=== PATIENT | female | born 2000 | race African-American/Black ===

== ENCOUNTER 2020-02-06 08:16 | Emergency (ER) | payer SELFPAY ==
[2020-02-06] MEDS ORDERED: FLU VACC QS2020-21(6MOS UP)/PF 60 MCG/0.5 ML SYRINGE IM ONE (08:45)
--- NOTE | 2020-02-06 08:48 | EDM.PDOC ---
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 Patient states approximately 3 to 4 weeks ago she had a positive home test. This morning she noticed some vaginal bleeding initially started out pretty light. She is noted a couple of tiny clots and now it is acting like it normal period. Patient denies prior pregnancies. Patient has no other complaints at this point. Patient is has used a couple of tampons this morning with mild bleeding and spotting of these. She has passed 2 very small clots. Patient denies any fevers or chills or significant abdominal pain. No nausea vomiting constipation or diarrhea no burning or frequency with urination. Lower Vaginal Pain Score (Numeric/FACES): 6 - Related Data Allergies Allergy/AdvReac Type Severity Reaction Status Date / Time No Known Allergies Allergy Verified 02/06/20 08:45 Home Meds: Home Meds . [No Known Home Meds] 02/06/20 [History] Past Medical History HEENT History: Reports: Impaired Vision Other HEENT History: wears eyeglasses. Cardiovascular History: Reports: Hypertension Other Cardiovascular History: wasa taking med, did not refill. 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 - Infectious Disease History Infectious Disease History: Reports: Chicken Pox Social & Family History - Tobacco Use Tobacco Use Status *Q: Never Tobacco User Second Hand Smoke Exposure: No - Caffeine Use Caffeine Use: Reports: None - Recreational Drug Use Recreational Drug Use: No ED ROS GENERAL - Review of Systems Review Of Systems: See Below Constitutional: Reports: No Symptoms HEENT: Reports: No Symptoms Respiratory: Reports: No Symptoms Cardiovascular: Reports: No Symptoms GI/Abdominal: Denies: Abdominal Pain, Constipation, Diarrhea, Nausea, Vomiting : Denies: Flank Pain, Frequency, Urgency Musculoskeletal: Reports: No Symptoms Skin: Reports: No Symptoms Neurological: Reports: No Symptoms ED EXAM - Physical Exam Exam: See Below Exam Limited By: No Limitations General Appearance: Alert, No Apparent Distress, Obese Throat/Mouth: Normal Inspection, Normal Lips, Normal Teeth, Normal Gums, Normal Oropharynx, Normal Voice, No Airway Compromise Head: Atraumatic, Normocephalic Neck: Normal Inspection Respiratory/Chest: No Respiratory Distress, Lungs Clear, Normal Breath Sounds Cardiovascular: Regular Rate, Rhythm, No Edema, No Murmur GI/Abdominal Exam: Normal Bowel Sounds, Soft, Tender (Patient is some vague left lower quadrant discomfort that is fairly mild and only noticed with palpation. Patient was not complaining of abdominal pain on presentation.) (Female) Exam: Normal Bimanual Exam, Normal External Exam, Normal Speculum Exam, Other (All amount of bloody discharge was few dark clots noted that are very small. She has some membranous material coming from the cervical os.) Back Exam: Normal Inspection. No: CVA Tenderness (L), CVA Tenderness (R) Extremities: Normal Inspection, No Pedal Edema Neurological: Alert, Oriented, Normal Cognition Skin Exam: Other (Patient states he has had hidradenitis causing the mild scarring in her lower extremities no active lesions at this time) Course - Vital Signs Last Recorded V/S: Last Vital Signs Temp 37.6 C 02/06/20 14:05 Pulse 74 02/06/20 14:05 Resp 16 02/06/20 14:05 BP 145/95 H 02/06/20 14:05 Pulse Ox 100 02/06/20 14:05 - Orders/Labs/Meds Orders: Active Orders 24 hr Category Date Time Status PATIENT RETYPE [BBK] Routine Lab 02/06/20 10:06 Ordered Labs: Laboratory Tests 02/06/20 02/06/20 02/06/20 Range/Units 09:10 09:10 09:10 WBC 3.22 L (3.98-10.04) K/mm3 RBC 4.64 (3.98-5.22) M/mm3 Hgb 11.6 (11.2-15.7) gm/dl Hct 36.6 (34.1-44.9) % MCV 78.9 L (79.4-94.8) fl MCH 25.0 L (25.6-32.2) pg MCHC 31.7 L (32.2-35.5) g/dl RDW Std Deviation 39.1 (36.4-46.3) fL Plt Count 235 (182-369) K/mm3 MPV 10.9 (9.4-12.3) fl Neut % (Auto) 54.3 (34.0-71.1) % Lymph % (Auto) 33.9 (19.3-51.7) % Peach % (Auto) 9.6 (4.7-12.5) % Eos % (Auto) 1.6 (0.7-5.8) Baso % (Auto) 0.6 (0.1-1.2) % Neut # (Auto) 1.75 (1.56-6.13) K/mm3 Lymph # (Auto) 1.09 L (1.18-3.74) K/mm3 Peach # (Auto) 0.31 (0.24-0.36) K/mm3 Eos # (Auto) 0.05 (0.04-0.36) K/mm3 Baso # (Auto) 0.02 (0.01-0.08) K/mm3 HCG, Quant 2.0 mIU/mL Urine Color (Yellow) Urine Appearance (Clear) Urine pH (5.0-8.0) Ur Specific Everett (1.005-1.030) Urine Protein (Negative) Urine Glucose (UA) (Negative) Urine Ketones (Negative) Urine Occult Blood (Negative) Urine Nitrite (Negative) Urine Bilirubin (Negative) Urine Urobilinogen (0.2-1.0) Ur Leukocyte Esterase (Negative) Urine RBC (0-5) /hpf Urine WBC (0-5) /hpf Ur Squamous Epith Cells (0-5) /hpf Urine Bacteria (FEW) /hpf Urine Mucus (FEW) /hpf Blood Type B POSITIVE Gel Antibody Screen Negative 02/06/20 Range/Units 12:28 WBC (3.98-10.04) K/mm3 RBC (3.98-5.22) M/mm3 Hgb (11.2-15.7) gm/dl Hct (34.1-44.9) % MCV (79.4-94.8) fl MCH (25.6-32.2) pg MCHC (32.2-35.5) g/dl RDW Std Deviation (36.4-46.3) fL Plt Count (182-369) K/mm3 MPV (9.4-12.3) fl Neut % (Auto) (34.0-71.1) % Lymph % (Auto) (19.3-51.7) % Peach % (Auto) (4.7-12.5) % Eos % (Auto) (0.7-5.8) Baso % (Auto) (0.1-1.2) % Neut # (Auto) (1.56-6.13) K/mm3 Lymph # (Auto) (1.18-3.74) K/mm3 Peach # (Auto) (0.24-0.36) K/mm3 Eos # (Auto) (0.04-0.36) K/mm3 Baso # (Auto) (0.01-0.08) K/mm3 HCG, Quant mIU/mL Urine Color Yellow (Yellow) Urine Appearance Clear (Clear) Urine pH 6.0 (5.0-8.0) Ur Specific Everett 1.025 (1.005-1.030) Urine Protein Negative (Negative) Urine Glucose (UA) Negative (Negative) Urine Ketones Negative (Negative) Urine Occult Blood 3+ H (Negative) Urine Nitrite Negative (Negative) Urine Bilirubin Negative (Negative) Urine Urobilinogen 0.2 (0.2-1.0) Ur Leukocyte Esterase Negative (Negative) Urine RBC >100 H (0-5) /hpf Urine WBC 0-5 (0-5) /hpf Ur Squamous Epith Cells 5-10 H (0-5) /hpf Urine Bacteria Few (FEW) /hpf Urine Mucus Rare (FEW) /hpf Blood Type Gel Antibody Screen Meds: Medications Discontinued Medications Generic Name Dose Route Start Last Admin Trade Name Joseq PRN Reason Stop Dose Admin Influenza Virus Vaccine 60 mcg 02/06/20 08:45 02/06/20 09:50 Fluzone Quad [id number] Syringe IM 02/06/20 08:46 60 mcg .ONCE ONE Administration - Re-Assessments/Exams Free Text/Narrative Re-Assessment/Exam: 02/06/20 12:28 Urinalysis pending CBC looks assuring quantitative hCG is 2.0. Vaginal exam as stated above. I suspect she has had a miscarriage. I discussed patient's case with Dr. Bee who does not think there is any utility in checking an ultrasound at this point I tend to agree. The patient will follow [facility] on . 02/06/20 13:55 She has microscopic hematuria most likely from the vaginal bleeding. Leukocyte esterase and nitrates negative not suggestive of UTI Departure - Departure Time of Disposition: 13:55 Disposition: Home, Self-Care 01 Clinical Impression: Incomplete , Incomplete miscarriage - Discharge Information Instructions: Miscarriage, [id number] Referrals: Allie Hummel NP [Primary Care Provider] - Babak Bee MD [Physician] - Forms: ED Department Discharge, ED Return to Work/School Form Additional Instructions: Return to the emergency room with any questions problems or heavy bleeding. Heavy bleeding is going through to fully saturated pads over 2 hours or over 2 and a 30-minute.. Follow-up at the women's clinic with Dr. Robbins on Wednesday at 10:30 in the morning. Start vitamins with folic acid take 1 daily. Do not try and get until told it is safe to do so. Sepsis Event Note (ED) - Evaluation Sepsis Screening Result: No Definite Risk - Focused Exam Vital Signs: Vital Signs Temp Pulse Resp BP Pulse Ox 02/06/20 14:05 37.6 C 74 16 145/95 H 100 02/06/20 08:20 36.1 C 82 16 157/81 H 100 - My Orders Last 24 Hours: My Active Orders 02/06/20 10:06 PATIENT RETYPE [BBK] Routine - Assessment/Plan Last 24 Hours: My Active Orders 02/06/20 10:06 PATIENT RETYPE [BBK] Routine
== END 2020-02-06 14:10 | disposition home or self-care (01) ==
LOC: JD.ED 08:16
DX: O03.4 Incomplete spontaneous abortion without complication (principal); I10 Essential (primary) hypertension; E66.9 Obesity, unspecified; Z68.43 Body mass index [BMI] 50.0-59.9, adult; Z23 Encounter for immunization
CPT/HCPCS: 36415; 81001; 84702; 85025; 86850; 86900; 86901; 90686; 99282; 99284-25; G0008

== ENCOUNTER 2020-02-20 21:52 | Emergency (ER) | payer SELFPAY ==
[2020-02-20] MEDS ORDERED: Sodium Chloride 0.9% 10 ML Syringe FLUSH PRN (22:18)
[2020-02-20] MEDS ORDERED: Ketorolac 30 MG/ML SDV IVPUSH ONE (22:19)
[2020-02-20] MEDS ORDERED: Ondansetron 4 MG/2 ML SDV IVPUSH ONE (22:19)
[2020-02-20] MEDS ORDERED: Sodium Chloride 0.9% 1,000 ML IV SCH (22:30)
--- NOTE | 2020-02-20 22:36 | EDM.PDOC ---
ED HPI GENERAL MEDICAL PROBLEM - General Chief Complaint: General Stated Complaint: SOB, DIZZY, HEART PALPATIONS, MIGRAINE Time Seen by Provider: 02/20/20 21:57 Source of Information: Reports: Patient History Limitations: Reports: No Limitations - History of Present Illness INITIAL COMMENTS - FREE TEXT/NARRATIVE: The patient presents with palpitations, dizziness and headache. This has been going on for about a week. A couple weeks ago she miscarried. She has no more bleeding from that. She says her heart has been racing at times. She also has been getting lightheaded. She has a headache on the right side of her head most of the time the past week She has no numbness but she has generalized weakness. She has no fever, chills, cough, chest pain, shortness of breath, abdominal pain, nausea or vomiting. She has a history of hypertension but no history of heart disease, diabetes or hypercholesterolemia. She does not smoke. Onset: Gradual Duration: Week(s): Location: Reports: Head Quality: Reports: Ache Severity: Moderate Improves with: Reports: None Worsens with: Reports: None Associated Symptoms: Reports: Headaches. Denies: Chest Pain, Cough, Fever/Chills, Nausea/Vomiting, Shortness of Breath Right Head Pain Score (Numeric/FACES): 5 Right Posterior Neck Pain Score (Numeric/FACES): 4 - Related Data Allergies Allergy/AdvReac Type Severity Reaction Status Date / Time doxycycline Allergy Severe Rash Verified 02/20/20 22:11 Home Meds: Home Meds . [No Known Home Meds] 02/06/20 [History] Past Medical History HEENT History: Reports: Impaired Vision Other HEENT History: wears eyeglasses. Cardiovascular History: Reports: Hypertension Other Cardiovascular History: wasa taking med, did not refill. 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 - Infectious Disease History Infectious Disease History: Reports: Chicken Pox Social & Family History - Tobacco Use Tobacco Use Status *Q: Never Tobacco User - Caffeine Use Caffeine Use: Reports: None - Recreational Drug Use Recreational Drug Use: No ED ROS GENERAL - Review of Systems Review Of Systems: See Below Constitutional: Reports: Weakness. Denies: Fever, Chills HEENT: Reports: No Symptoms Respiratory: Reports: No Symptoms Cardiovascular: Reports: Lightheadedness. Denies: Chest Pain Endocrine: Reports: No Symptoms GI/Abdominal: Reports: No Symptoms : Reports: No Symptoms Musculoskeletal: Reports: No Symptoms Neurological: Reports: Headache ED EXAM, GENERAL - Physical Exam Exam: See Below Exam Limited By: No Limitations General Appearance: Alert, No Apparent Distress Ears: Normal External Exam Nose: Normal Inspection Head: Atraumatic, Normocephalic Neck: Normal Inspection Respiratory/Chest: No Respiratory Distress, Lungs Clear, Normal Breath Sounds Cardiovascular: Regular Rate, Rhythm, No Edema, No Murmur GI/Abdominal: Soft, Non-Tender, No Organomegaly, No Mass Back Exam: Normal Inspection Extremities: Normal Inspection #1 Interpretation EKG Date: 02/20/20 Time: 22:24 Rhythm: NSR Rate (Beats/Min): 96 Bath: Normal P-Wave: Present QRS: Normal ST-T: Normal QT: Normal Course - Vital Signs Last Recorded V/S: Last Vital Signs Temp 97.3 F 02/20/20 22:04 Pulse 113 H 02/20/20 22:04 Resp 28 H 02/20/20 22:04 BP 140/70 02/20/20 22:04 Pulse Ox 97 02/20/20 22:04 - Orders/Labs/Meds Orders: Active Orders 24 hr Category Date Time Status Cardiac Monitoring [RC] . DIRECTED Care 02/20/20 22:18 Active EKG Documentation Completion [RC] STAT Care 02/20/20 22:18 Active Peripheral IV Care [RC] . DIRECTED Care 02/20/20 22:18 Active Sodium Chloride 0.9% [Normal Saline] 1,000 ml Med 02/20/20 22:30 Active IV .BOLUS Sodium Chloride 0.9% [Saline Flush] Med 02/20/20 22:18 Active 10 ml FLUSH ASDIRECTED PRN Peripheral IV Insertion Adult [OM.PC] Stat Oth 02/20/20 22:18 Ordered Medication Orders Sodium Chloride (Normal Saline) 1,000 mls @ 1,000 mls/hr IV .BOLUS DIAMOND Last Admin: 02/20/20 22:34 Dose: 1,000 mls/hr Documented by: AZALEA Sodium Chloride (Saline Flush) 10 ml FLUSH ASDIRECTED PRN PRN Reason: Keep Vein Open Last Admin: 02/20/20 22:35 Dose: 10 ml Documented by: AZALEA Labs: Laboratory Tests 02/20/20 02/20/20 02/20/20 Range/Units 22:40 22:40 22:40 WBC 8.85 (3.98-10.04) K/mm3 RBC 4.36 (3.98-5.22) M/mm3 Hgb 10.6 L (11.2-15.7) gm/dl Hct 34.1 (34.1-44.9) % MCV 78.2 L (79.4-94.8) fl MCH 24.3 L (25.6-32.2) pg MCHC 31.1 L (32.2-35.5) g/dl RDW Std Deviation 39.4 (36.4-46.3) fL Plt Count 237 (182-369) K/mm3 MPV 11.1 (9.4-12.3) fl Neut % (Auto) 27.5 L (34.0-71.1) % Lymph % (Auto) 59.9 H (19.3-51.7) % Wheeler % (Auto) 10.3 (4.7-12.5) % Eos % (Auto) 0.2 L (0.7-5.8) Baso % (Auto) 1.9 H (0.1-1.2) % Neut # (Auto) 2.43 (1.56-6.13) K/mm3 Lymph # (Auto) 5.30 H (1.18-3.74) K/mm3 Wheeler # (Auto) 0.91 H (0.24-0.36) K/mm3 Eos # (Auto) 0.02 L (0.04-0.36) K/mm3 Baso # (Auto) 0.17 H (0.01-0.08) K/mm3 Manual Slide Review Abnormal smear Sodium 136 (136-145) mEq/L Potassium 3.1 L (3.5-5.1) mEq/L Chloride 102 (98-107) mEq/L Carbon Dioxide 24 (21-32) mEq/L Anion Gap 13.1 (5-15) BUN 16 (7-18) mg/dL Creatinine 1.1 H (0.55-1.02) mg/dL Est Cr Clr Drug Dosing 67.48 mL/min Estimated GFR (MDRD) > 60 (>60) mL/min BUN/Creatinine Ratio 14.5 (14-18) Glucose 86 (74-106) mg/dL Calcium 9.0 (8.5-10.1) mg/dL Total Bilirubin 0.4 (0.2-1.0) mg/dL AST 138 H (15-37) U/L ALT 188 H (14-59) U/L Alkaline Phosphatase 50 (46-116) U/L Troponin I < 0.017 (0.00-0.056) ng/mL Total Protein 7.9 (6.4-8.2) g/dl Albumin 3.3 L (3.4-5.0) g/dl Globulin 4.6 gm/dL Albumin/Globulin Ratio 0.7 L (1-2) TSH 3rd Generation (0.516-4.13) uIU/mL HCG, Qual Negative (NEGATIVE) 02/20/20 Range/Units 22:40 WBC (3.98-10.04) K/mm3 RBC (3.98-5.22) M/mm3 Hgb (11.2-15.7) gm/dl Hct (34.1-44.9) % MCV (79.4-94.8) fl MCH (25.6-32.2) pg MCHC (32.2-35.5) g/dl RDW Std Deviation (36.4-46.3) fL Plt Count (182-369) K/mm3 MPV (9.4-12.3) fl Neut % (Auto) (34.0-71.1) % Lymph % (Auto) (19.3-51.7) % Wheeler % (Auto) (4.7-12.5) % Eos % (Auto) (0.7-5.8) Baso % (Auto) (0.1-1.2) % Neut # (Auto) (1.56-6.13) K/mm3 Lymph # (Auto) (1.18-3.74) K/mm3 Wheeler # (Auto) (0.24-0.36) K/mm3 Eos # (Auto) (0.04-0.36) K/mm3 Baso # (Auto) (0.01-0.08) K/mm3 Manual Slide Review Sodium (136-145) mEq/L Potassium (3.5-5.1) mEq/L Chloride (98-107) mEq/L Carbon Dioxide (21-32) mEq/L Anion Gap (5-15) BUN (7-18) mg/dL Creatinine (0.55-1.02) mg/dL Est Cr Clr Drug Dosing mL/min Estimated GFR (MDRD) (>60) mL/min BUN/Creatinine Ratio (14-18) Glucose (74-106) mg/dL Calcium (8.5-10.1) mg/dL Total Bilirubin (0.2-1.0) mg/dL AST (15-37) U/L ALT (14-59) U/L Alkaline Phosphatase (46-116) U/L Troponin I (0.00-0.056) ng/mL Total Protein (6.4-8.2) g/dl Albumin (3.4-5.0) g/dl Globulin gm/dL Albumin/Globulin Ratio (1-2) TSH 3rd Generation 3.197 (0.516-4.13) uIU/mL HCG, Qual (NEGATIVE) Meds: Medications Generic Name Dose Route Start Last Admin Trade Name Freq PRN Reason Stop Dose Admin Sodium Chloride 1,000 mls @ 1,000 mls/hr 02/20/20 22:30 02/20/20 22:34 Normal Saline IV 1,000 mls/hr .BOLUS DIAMOND Administration Sodium Chloride 10 ml 02/20/20 22:18 02/20/20 22:35 Saline Flush FLUSH 10 ml ASDIRECTED PRN Administration Keep Vein Open Discontinued Medications Generic Name Dose Route Start Last Admin Trade Name Freq PRN Reason Stop Dose Admin Ketorolac Tromethamine 30 mg 02/20/20 22:19 02/20/20 22:34 Toradol IVPUSH 02/20/20 22:20 30 mg ONETIME ONE Administration Ondansetron HCl 4 mg 02/20/20 22:19 02/20/20 22:34 Zofran IVPUSH 02/20/20 22:20 4 mg ONETIME ONE Administration - Re-Assessments/Exams Free Text/Narrative Re-Assessment/Exam: 12/15/20 22:38 I ordered an IV NS 1L bolus, zofran 4mg IV, toradol 4mg IV, labs, and EKG. Her EKG shows a NSR with no acute changes. 02/20/20 23:46 Her CBC looks good. Her CBC looks good. Her K is low at 3.1. Her creatinine is slightly elevated at 1.1. Her AST is elevated at 138. Her ALT is elevated at 188. Her troponin is negative. Her HCG is negative. Her TSH is normal. 02/20/20 23:47 Her headache is gone now. Departure - Departure Time of Disposition: 23:50 Disposition: Home, Self-Care 01 Condition: Good Clinical Impression: Palpitations, Elevated liver enzymes, Hypokalemia Headache Qualifiers: Headache type: other headache syndrome Qualified Code(s): G44.89 - Other headache syndrome - Discharge Information *PRESCRIPTION DRUG MONITORING PROGRAM REVIEWED*: Not Applicable *COPY OF PRESCRIPTION DRUG MONITORING REPORT IN PATIENT BISI: Not Applicable Referrals: Allie Hummel NP [Primary Care Provider] - 1 Week Forms: ED Department Discharge Additional Instructions: Keep taking a multivitamin that contains potassium. Drink plenty of fluids. Take motrin or tylenol for your headache. See your doctor within a week and have your liver enzymes rechecked. Sepsis Event Note (ED) - Evaluation Sepsis Screening Result: No Definite Risk - Focused Exam Vital Signs: Vital Signs Temp Pulse Resp BP Pulse Ox 02/20/20 22:04 97.3 F 113 H 28 H 140/70 97 - My Orders Last 24 Hours: My Active Orders 02/20/20 22:18 Cardiac Monitoring [RC] . DIRECTED EKG Documentation Completion [RC] STAT Peripheral IV Care [RC] . DIRECTED Sodium Chloride 0.9% [Saline Flush] 10 ml FLUSH ASDIRECTED PRN Peripheral IV Insertion Adult [OM.PC] Stat 02/20/20 22:30 Sodium Chloride 0.9% [Normal Saline] 1,000 ml IV .BOLUS - Assessment/Plan Last 24 Hours: My Active Orders 02/20/20 22:18 Cardiac Monitoring [RC] . DIRECTED EKG Documentation Completion [RC] STAT Peripheral IV Care [RC] . DIRECTED Sodium Chloride 0.9% [Saline Flush] 10 ml FLUSH ASDIRECTED PRN Peripheral IV Insertion Adult [OM.PC] Stat 02/20/20 22:30 Sodium Chloride 0.9% [Normal Saline] 1,000 ml IV .BOLUS
== END 2020-02-20 23:56 | disposition home or self-care (01) ==
LOC: JD.ED 21:52
DX: E87.6 Hypokalemia (principal); G44.89 Other headache syndrome; R74.8 Abnormal levels of other serum enzymes; M54.2 Cervicalgia; I10 Essential (primary) hypertension; E66.9 Obesity, unspecified; Z68.43 Body mass index [BMI] 50.0-59.9, adult; Z88.1 Allergy status to other antibiotic agents
CPT/HCPCS: 36415; 80053; 84443; 84484; 84703; 85025; 93005; 96374; 96375; 99285; J1885; J2405; J7030; 93010; 99284

== ENCOUNTER 2020-11-19 09:32 | Emergency (ER) | payer BC ==
--- NOTE | 2020-11-19 10:01 | EDM.PDOC ---
ED HPI GENERAL MEDICAL PROBLEM - General Chief Complaint: Abdominal Pain Stated Complaint: L SIDE ABDOMINAL PAIN Time Seen by Provider: 11/19/20 10:01 Source of Information: Reports: Patient History Limitations: Reports: No Limitations - History of Present Illness INITIAL COMMENTS - FREE TEXT/NARRATIVE: 20-year-old female of -Indian descent presents to the ED with severe left flank pain which is coming from her skin. She reports she gets recurrent abscesses but usually she is able to deal with them at home. This current pain is the worst she is ever felt. She has very limited mobility and the overlying skin is extremely tender to touch. Initially was sharp and stabbing pains on intermittent basis on Wednesday, November 17 and over the last 24 hours has progressed to a constant severe burning pain within the left lateral abdominal wall mid axillary to posterior axillary line and radiating towards the left flank. The pain is currently rated as 10 out of 10 and she is unable to touch or lie on her left side. She had marked difficulty getting up onto the gurney. No previous abdominal surgery. She estimates her last known menstrual period was around October 25. Last meal was approximately 0715 hrs. this morning when she had some broccoli. Nothing per or since. Onset: Gradual Onset Date: 11/17/20 (Gradually increasing pain in this area over the last 3 days) Duration: Day(s):, Constant Location: Reports: Abdomen (Left upper lateral abdominal wall between the mid and posterior axillary line traveling towards her left flank.) Quality: Reports: Ache, Burning, Throbbing Severity: Severe (10 out of 10) Improves with: Reports: Rest (Moving it all makes it a little bit better) Worsens with: Reports: Other (Any movement or touch of the area causes t remendous pain) Context: Reports: Other (Spontaneous occurrence). Denies: Activity, Exercise, Lifting, Sick Contact, Trauma Associated Symptoms: Denies: Confusion, Chest Pain, Cough, cough w sputum, Diaphoresis, Fever/Chills, Headaches, Loss of Appetite, Malaise, Nausea/Vomiting, Rash, Seizure, Shortness of Breath, Syncope, Weakness Treatments MIDDLEWARE ADMINISTRATOR: Reports: Other (see below) (None.) Left Flank Pain Score (Numeric/FACES): 8 - Related Data Allergies Allergy/AdvReac Type Severity Reaction Status Date / Time doxycycline Allergy Severe Rash Verified 11/19/20 10:04 Home Meds: Home Meds Amoxicillin/Potassium Clav [Augmentin 500-125 Tablet] 1 each PO BID #16 tablet 11/19/20 [Rx] Triamcinolone Acetonide [Triderm] 1 dose TOP DAILY PRN 11/19/20 [History] oxyCODONE HCl/Acetaminophen [Percocet 5-325 mg Tablet] 1 - 2 each PO Q4H PRN #16 tablet 11/19/20 [Rx] Past Medical History HEENT History: Reports: Impaired Vision Other HEENT History: wears eyeglasses. Cardiovascular History: Reports: Hypertension Other Cardiovascular History: wasa taking med, did not refill. 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 - Infectious Disease History Infectious Disease History: Reports: Chicken Pox Social & Family History - Caffeine Use Caffeine Use: Reports: None - Living Situation & Occupation Living situation: Reports: Single Occupation: Employed ED ROS GENERAL - Review of Systems Review Of Systems: See Below Constitutional: Denies: Fever, Chills, Malaise, Weakness, Fatigue, Decreased Appetite, Weight Loss HEENT: Reports: No Symptoms Respiratory: Reports: Shortness of Breath Cardiovascular: Reports: No Symptoms Endocrine: Reports: Fatigue GI/Abdominal: Reports: Abdominal Pain (Abdominal wall pain. See history of present illness) : Reports: No Symptoms Musculoskeletal: Reports: No Symptoms Skin: Reports: Other (History of hidradenitis suppurativa primarily in the axillas) Neurological: Reports: No Symptoms Psychiatric: Reports: No Symptoms Hematologic/Lymphatic: Reports: No Symptoms Immunologic: Reports: No Symptoms ED EXAM, GI/ABD - Physical Exam Exam: See Below Exam Limited By: No Limitations General Appearance: Alert, WD/WN, Mild Distress, Other (Temperature is 36.1. Heart rate 102 and sinus respiratory is 18 with O2 sats 100% room air. BP 150/72) Eyes: Bilateral: Normal Appearance Throat/Mouth: Normal Inspection, Normal Lips, Normal Oropharynx Head: Atraumatic, Normocephalic Neck: Normal Inspection, Supple, Non-Tender, Full Range of Motion. No: Lymphadenopathy (L), Lymphadenopathy (R) Respiratory/Chest: No Respiratory Distress, Lungs Clear, Normal Breath Sounds, No Accessory Muscle Use Cardiovascular: Normal Peripheral Pulses, Regular Rate, Rhythm, No Edema, No Gallop, No Murmur, No Rub GI/Abdominal Exam: Normal Bowel Sounds, Soft, Tender (Area of tenderness is approximately 6 inches in length and 3 inches in width in the mid axillary to the posterior axillary line just below the costal margin left side. It radiates towards her left flank.), Other (No surgical scars). No: Distended, Hernia Back Exam: Normal Inspection, CVA Tenderness (L) (Overlying skin is very tender just below this.). No: CVA Tenderness (R) Extremities: Normal Inspection, Normal Range of Motion, Non-Tender, No Pedal Edema Neurological: Alert, Oriented, CN II-XII Intact, Normal Cognition (In a good deal of discomfort.) Psychiatric: Other Skin Exam: Warm, Dry, Intact, Normal Color, No Rash Course - Vital Signs Last Recorded V/S: Last Vital Signs Temp 36.1 C 11/19/20 09:59 Pulse 102 H 11/19/20 09:59 Resp 18 11/19/20 09:59 BP 150/72 H 11/19/20 09:59 Pulse Ox 100 11/19/20 09:59 - Orders/Labs/Meds Orders: Active Orders 24 hr Category Date Time Status Sodium Chloride 0.9% [Normal Saline] 1,000 ml Med 11/19/20 10:30 Active IV ASDIRECTED Sodium Chloride 0.9% [Saline Flush] Med 11/19/20 11:53 Active 10 ml FLUSH ONETIME PRN Medication Orders Sodium Chloride (Normal Saline) 1,000 mls @ 150 mls/hr IV ASDIRECTED DIAMOND Last Admin: 11/19/20 10:51 Dose: 150 mls/hr Documented by: LYNN Sodium Chloride (Sodium Chloride 0.9% 10 Ml Syringe) 10 ml FLUSH ONETIME PRN PRN Reason: IV FLUSH Last Admin: 11/19/20 12:08 Dose: 10 ml Documented by: ANNIKA Labs: Laboratory Tests 11/19/20 11/19/20 11/19/20 Range/Units 10:31 10:31 10:31 WBC 15.25 H (3.98-10.04) K/mm3 RBC 4.66 (3.98-5.22) M/mm3 Hgb 11.6 (11.2-15.7) gm/dl Hct 36.5 (34.1-44.9) % MCV 78.3 L (79.4-94.8) fl MCH 24.9 L (25.6-32.2) pg MCHC 31.8 L (32.2-35.5) g/dl RDW Std Deviation 40.8 (36.4-46.3) fL Plt Count 316 (182-369) K/mm3 MPV 11.2 (9.4-12.3) fl Neutrophils % (Manual) 71 H (40-60) % Band Neutrophils % 0 (0-10) % Lymphocytes % (Manual) 25 (20-40) % Atypical Lymphs % 1 % Monocytes % (Manual) 3 (2-10) % Eosinophils % (Manual) 0 L (0.7-5.8) % Basophils % (Manual) 0 L (0.1-1.2) Platelet Estimate Adequate Plt Morphology Comment Normal Microcytosis 1+ slight RBC Morph Comment Not Reportable Sodium 140 (136-145) mEq/L Potassium 4.0 (3.5-5.1) mEq/L Chloride 104 (98-107) mEq/L Carbon Dioxide 28 (21-32) mEq/L Anion Gap 12.0 (5-15) BUN 15 (7-18) mg/dL Creatinine 0.9 (0.55-1.02) mg/dL Est Cr Clr Drug Dosing 83.59 mL/min Estimated GFR (MDRD) > 60 (>60) mL/min BUN/Creatinine Ratio 16.7 (14-18) Glucose 93 (70-99) mg/dL Calcium 9.0 (8.5-10.1) mg/dL Total Bilirubin 0.5 (0.2-1.0) mg/dL AST 14 L (15-37) U/L ALT 26 (14-59) U/L Alkaline Phosphatase 65 (46-116) U/L C-Reactive Protein 11.9 H* (<1.0) mg/dL Total Protein 8.7 H (6.4-8.2) g/dl Albumin 3.5 (3.4-5.0) g/dl Globulin 5.2 gm/dL Albumin/Globulin Ratio 0.7 L (1-2) HCG, Qual Negative (NEGATIVE) Urine Color (Yellow) Urine Appearance (Clear) Urine pH (5.0-8.0) Ur Specific [place] (1.005-1.030) Urine Protein (Negative) Urine Glucose (UA) (Negative) Urine Ketones (Negative) Urine Occult Blood (Negative) Urine Nitrite (Negative) Urine Bilirubin (Negative) Urine Urobilinogen (0.2-1.0) Ur Leukocyte Esterase (Negative) Urine RBC (0-5) /hpf Urine WBC (0-5) /hpf Ur Epithelial Cells (0-5) /hpf Urine Bacteria (FEW) /hpf Urine Mucus (FEW) /hpf 11/19/20 Range/Units 13:15 WBC (3.98-10.04) K/mm3 RBC (3.98-5.22) M/mm3 Hgb (11.2-15.7) gm/dl Hct (34.1-44.9) % MCV (79.4-94.8) fl MCH (25.6-32.2) pg MCHC (32.2-35.5) g/dl RDW Std Deviation (36.4-46.3) fL Plt Count (182-369) K/mm3 MPV (9.4-12.3) fl Neutrophils % (Manual) (40-60) % Band Neutrophils % (0-10) % Lymphocytes % (Manual) (20-40) % Atypical Lymphs % % Monocytes % (Manual) (2-10) % Eosinophils % (Manual) (0.7-5.8) % Basophils % (Manual) (0.1-1.2) Platelet Estimate Plt Morphology Comment Microcytosis RBC Morph Comment Sodium (136-145) mEq/L Potassium (3.5-5.1) mEq/L Chloride (98-107) mEq/L Carbon Dioxide (21-32) mEq/L Anion Gap (5-15) BUN (7-18) mg/dL Creatinine (0.55-1.02) mg/dL Est Cr Clr Drug Dosing mL/min Estimated GFR (MDRD) (>60) mL/min BUN/Creatinine Ratio (14-18) Glucose (70-99) mg/dL Calcium (8.5-10.1) mg/dL Total Bilirubin (0.2-1.0) mg/dL AST (15-37) U/L ALT (14-59) U/L Alkaline Phosphatase (46-116) U/L C-Reactive Protein (<1.0) mg/dL Total Protein (6.4-8.2) g/dl Albumin (3.4-5.0) g/dl Globulin gm/dL Albumin/Globulin Ratio (1-2) HCG, Qual (NEGATIVE) Urine Color Light yellow (Yellow) Urine Appearance Clear (Clear) Urine pH 7.0 (5.0-8.0) Ur Specific [place] 1.015 (1.005-1.030) Urine Protein Negative (Negative) Urine Glucose (UA) Negative (Negative) Urine Ketones Negative (Negative) Urine Occult Blood Negative (Negative) Urine Nitrite Negative (Negative) Urine Bilirubin Negative (Negative) Urine Urobilinogen 0.2 (0.2-1.0) Ur Leukocyte Esterase Negative (Negative) Urine RBC 0-5 (0-5) /hpf Urine WBC 0-5 (0-5) /hpf Ur Epithelial Cells 5-10 H (0-5) /hpf Urine Bacteria Moderate H (FEW) /hpf Urine Mucus Not seen (FEW) /hpf Meds: Medications Generic Name Dose Route Start Last Admin Trade Name Freq PRN Reason Stop Dose Admin Sodium Chloride 1,000 mls @ 150 mls/hr 11/19/20 10:30 11/19/20 10:51 Normal Saline IV 150 mls/hr ASDIRECTED DIAMOND Administration Sodium Chloride 10 ml 11/19/20 11:53 11/19/20 12:08 Sodium Chloride 0.9% 10 Ml Syringe FLUSH 10 ml ONETIME PRN Administration IV FLUSH Discontinued Medications Generic Name Dose Route Start Last Admin Trade Name Freq PRN Reason Stop Dose Admin Bupivacaine HCl/Epinephrine Bitart 30 ml 11/19/20 14:14 11/19/20 14:59 Bupivacaine 0.5%/Epinephrine 1:200,000 30 Ml Sdv INJECT 11/19/20 14:15 Not Given ONETIME ONE Bupivacaine HCl/Epinephrine Bitart 50 ml 11/19/20 14:59 11/19/20 14:59 Bupivacaine 0.5%/Epinephrine 1:200,000 50 Ml Mdv NERVRT 11/19/20 15:00 30 ml ONETIME ONE Administration Hydromorphone HCl 1 mg 09/14/21 10:17 11/19/20 10:53 Hydromorphone 1 Mg/Ml Syringe IVPUSH 11/19/20 10:18 1 mg ONETIME ONE Administration Hydromorphone HCl 1 mg 11/19/20 13:51 11/19/20 14:37 Hydromorphone 1 Mg/Ml Syringe IVPUSH 11/19/20 13:52 1 mg ONETIME ONE Administration Hydromorphone HCl Confirm 11/19/20 14:36 11/19/20 14:58 Hydromorphone 1 Mg/Ml Syringe Administered 11/19/20 14:37 Not Given Dose 1 mg .ROUTE .STK-MED ONE Ceftriaxone Sodium 2 gm/ 100 mls @ 200 mls/hr 11/19/20 11:50 11/19/20 12:32 Sodium Chloride IV 11/19/20 12:19 200 mls/hr ONETIME ONE Administration Iopamidol 50 ml 11/19/20 11:53 11/19/20 12:08 Iopamidol 612 Mg/Ml 50 Ml Sdv IVPUSH 11/19/20 11:54 50 ml ONETIME ONE Administration Iopamidol 100 ml 11/19/20 11:53 11/19/20 12:08 Iopamidol 612 Mg/Ml 100 Ml Bottle IVPUSH 11/19/20 11:54 100 ml ONETIME ONE Administration Lidocaine HCl 60 ml 11/19/20 14:12 11/19/20 14:58 Lidocaine 1% 20 Ml Mdv INJECT 11/19/20 14:13 Not Given ONETIME ONE Lidocaine HCl Confirm 11/19/20 14:21 11/19/20 14:58 Lidocaine 1% 10 Ml Mdv Administered 11/19/20 14:22 Not Given Dose 30 ml .ROUTE .STK-MED ONE Lidocaine HCl 30 ml 11/19/20 14:59 11/19/20 15:00 Lidocaine 1% 10 Ml Mdv INJECT 11/19/20 15:00 20 ml ONETIME ONE Administration Metoclopramide HCl 10 mg 11/19/20 10:17 11/19/20 10:51 Metoclopramide 10 Mg/2 Ml Sdv IVPUSH 11/19/20 10:18 10 mg ONETIME ONE Administration - Radiology Interpretation Free Text/Narrative:: 20-year-old female of -[place] descent presents to the ED with gradually worsening pain in her left lateral upper abdominal wall over the last 3 days. She has an area just below the costal margin on the left side between the mid axillary and posterior axillary line that is exquisitely tender to palpation with suspect induration and underlying abscess. There is nothing pointing to the skin and the overlying skin is warm to palpation. No nidus or source for infection is evident. She will hardly allow me to touch the area it is still painful. Plan IV fluids to be started normal saline at 150 mils per hour. Dilaudid 1 mg IV with Reglan 10 mg IV for pain relief. Once I confirm for sure that she is not she will be taken to the CT suite for CT of the abdomen and pelvis with IV contrast. - Re-Assessments/Exams Free Text/Narrative Re-Assessment/Exam: 11/19/20 11:45 test is negative. I will therefore have CT scan of the abdomen pelvis performed with IV contrast only. 11/19/20 11:48 White count is elevated at 15.25 with 71% neutrophils no bands cells reported. Hemoglobin is low at 11.6 with hematocrit of 36.5. MCV is low at 78.3 suggesting iron deficiency. Platelet counts 316,000. The slide shows platelets are adequate with normal morphology. 1+ microcytosis. Chemistry shows a sodium of 140 with a potassium of 4.0. Chloride 104 with a bicarb of 28. Anion gap is 12.0. BUN is 15 with a creatinine of 0.9 and a GFR greater than 60. Glucose is 93. Calcium is 9.0 liver function is normal. C-reactive protein is elevated at 11.9. Total protein is 8.7 with an albumin fraction of 3.58 beta-hCG as noted above is negative. I am going to give her Rocephin 2 g intravenously at this time. CT of the abdomen and pelvis will be ordered with IV contrast only. 11/19/20 12:39 CT scan of the abdomen pelvis has been performed with IV contrast only. On my evaluation she has an abscess measuring 6.5 x 3.5 cm left flank area in the subcutaneous tissues. She will start antibiotic Rocephin 2 g IV at this time. Surgical consult will be obtained since she has so much pain at this area that it is difficult to get near the abscess. She is going to need a general anesthetic to open and drain this abscess. I will therefore consult with Dr. Carr on-call surgeon in this regard 11/19/20 12:[address] of the abdomen pelvis has been completed. Soft tissue density is seen within the posterior lateral left abdominal wall which occurs within the subcutaneous fat. There is focal fluid also being seen in this area. Finding measures approximately 10.3 x 5.6 cm. This is highly suspicious for soft tissue area of infection with probable abscess. This finding shows connection to a skin fold which also shows thickening of the skin. Small soft tissue nodule is seen more superiorly within the lateral left abdomen measuring about 2.8 cm in size. This is nonspecific regarding etiology but appears to be benign. Visualized lung bases are clear. Liver contains no focal parenchymal abnormality. Spleen is normal in size. Adrenal glands show no nodules. Kidneys show symmetric contrast enhancement. No hydronephrosis or mass is seen. Delayed images show contrast within the collecting systems as well as within both ureters and bladder. No contrast exposition is seen. Pancreas appears to be within normal limits. Gallbladder contains no calcified gallstones. Abdominal aorta shows no aneurysm. No retroperitoneal adenopathy or mesenteric abnormalities are seen. Appendix is not definitively visualized. Bone window settings were reviewed which appear to be within normal limits for the patient's age. 11/19/20 13:05 I did speak with Dr. Carr--and she will discuss the case with anesthesia and they will come up with a plan as to when best to operate on this patient to drain abscess over her left lateral abdominal wall and flank area. 11/19/20 13:37 DRAIN LAYER from department of anesthesia has assessed the patient and believes that we are better off to wait the full 8 hours from last meal as she is high risk surgery due to morbid obesity. No set time to my knowledge has been set for incision and drainage of abscess. Patient at this time states she is doing well with pain without need for. Further analgesia. Dr. Carr has spoken with the patient at length and decision made to proceed with the drainage of abscess under local anesthesia and the patient has agreed. 11/19/20 15:42 Incision and drainage of abscess apparently was successful with packing placed by . Patient feels she will be able to manage at home. She has friends who are nursing students and will take out her packing in 48 hours time. In the interim I will discharge her on Percocet tabs 5 /325 mg strength 1-2 every 4-6 hours as needed for pain relief x16 tablets. After this she should be able to get by with Motrin 600 mg every 6 hours. Antibiotic will be Augmentin 500/325mg tablet by mouth twice daily for the next 8 days to clear up abscess. She has an appointment to follow-up with in clinic in about a week's time. Are being made for the patient to attend the [facility] for daily dressing changes and packing changes. Departure - Departure Time of Disposition: 15:44 Disposition: Home, Self-Care 01 Condition: Fair Clinical Impression: Abdominal wall abscess, Encounter for incision and drainage procedure - Discharge Information *PRESCRIPTION DRUG MONITORING PROGRAM REVIEWED*: Not Applicable *COPY OF PRESCRIPTION DRUG MONITORING REPORT IN PATIENT BISI: Not Applicable Prescriptions: Amoxicillin/Potassium Clav [Augmentin 500-125 Tablet] 1 each PO BID #16 tablet oxyCODONE HCl/Acetaminophen [Percocet 5-325 mg Tablet] 1 - 2 each PO Q4H PRN #16 tablet PRN Reason: pain relief. Instructions: Skin Abscess Referrals: Allie Hummel FRESH WORK INSPECTOR [Primary Care Provider] - Forms: ED Department Discharge Additional Instructions: Evaluation in the emergency room today in regards to abdominal wall abscess that has formed over the last 3 days along the costal margin and towards her left flank deep within a skin fold. The abscess was identified on CT examined of the abdomen. You were able to tolerate drainage of the abscess under local anesthetic carried out by surgeon Dr Carr. Packing has been placed and apparently is supposed to be removed and repacked on a daily basis until follow- up with her in the clinic in a week's time. Currently arrangements have been made for you to attend the clinic on a daily basis to have the packing changed until follow-up with . Pain medication is to be Percocet 5/325 mg strength tablets 1 or 2 every 4-6 hours as necessary for pain relief for the next few days. After this Motrin 600 mg every 6 hours for pain relief as needed. Antibiotic is to be Augmentin 500/1 2 5 mg tablet 1 tablet twice daily for the next 8 days to clear up infection. Sepsis Event Note (ED) - Focused Exam Vital Signs: Vital Signs Temp Pulse Resp BP Pulse Ox 11/19/20 09:59 36.1 C 102 H 18 150/72 H 100 - My Orders Last 24 Hours: My Active Orders 11/19/20 10:30 Sodium Chloride 0.9% [Normal Saline] 1,000 ml IV ASDIRECTED 11/19/20 11:53 Sodium Chloride 0.9% [Saline Flush] 10 ml FLUSH ONETIME PRN - Assessment/Plan Last 24 Hours: My Active Orders 11/19/20 10:30 Sodium Chloride 0.9% [Normal Saline] 1,000 ml IV ASDIRECTED 11/19/20 11:53 Sodium Chloride 0.9% [Saline Flush] 10 ml FLUSH ONETIME PRN
[2020-11-19] MEDS ORDERED: Metoclopramide 10 MG/2 ML SDV IVPUSH ONE (10:17)
[2020-11-19] MEDS ORDERED: HYDROmorphone 1 MG/ML Syringe IVPUSH ONE ×2 (10:17→13:51)
[2020-11-19] MEDS ORDERED: Sodium Chloride 0.9% 1,000 ML IV SCH (10:30)
[2020-11-19] MEDS ORDERED: cefTRIAXone 2 GM in Sodium Chloride 0.9% 100 ML IV ONE (11:50)
[2020-11-19] MEDS ORDERED: Iopamidol 612 MG/ML 50 ML SDV IVPUSH ONE (11:53)
[2020-11-19] MEDS ORDERED: Sodium Chloride 0.9% 10 ML Syringe FLUSH PRN (11:53)
[2020-11-19] MEDS ORDERED: Iopamidol 612 MG/ML 100 ML Bottle IVPUSH ONE (11:53)
--- NOTE | 2020-11-19 12:38 | CT ---
CT abdomen and pelvis Technique: Multiple axial sections were obtained from above the dome of the diaphragm inferiorly through the pubic symphysis. Intravenous contrast was utilized. No oral contrast has been given. Delayed images were also obtained through the abdomen and pelvis. Reconstructed coronal and sagittal images were obtained. Comparison: No prior abdominal imaging is available. Findings: Soft tissue density is seen within the posterolateral left abdominal wall which occurs within the subcutaneous fat. There is focal fluid also being seen within this area. Finding measures approximately 10.3 x 5.6 cm. This is highly suspicious for a soft tissue area of infection with probable abscess. This finding shows connection to a skin fold which also shows skin thickening. Small soft tissue nodule is seen more superiorly within the lateral left abdomen measuring about 2.8 cm in size. This is nonspecific regarding etiology but is likely benign. Visualized lung bases are clear. Liver contains no focal parenchymal abnormality. Spleen size is normal. Adrenal glands show no nodule. Kidneys show symmetric contrast enhancement. No hydronephrosis or mass is seen. Delayed images show contrast within the collecting systems as well as within both ureters and bladder. No contrast extravasation is seen. Pancreas appears within normal limits. Gallbladder contains no calcified gallstones. Abdominal aorta shows no aneurysm. No retroperitoneal adenopathy or mesenteric abnormalities are seen. Appendix is not definitely visualized. No pelvic mass or adenopathy is seen. Bone window settings were reviewed which appear within normal limits for the patient's age. Impression: 1. Abnormality within the upper left posterolateral abdominal wall involving the subcutaneous fat. This finding shows fluid and is felt compatible with cellulitis with abscess. Measurements as noted above. This finding shows connection to a skin fold which also shows skin thickening. 2. Small soft tissue nodule seen more superiorly within the lateral abdomen within the subcutaneous fat which is nonspecific but most likely benign. 3. No additional abnormality is appreciated on CT study of the abdomen and pelvis. Diagnostic code #5
[2020-11-19] MEDS ORDERED: Lidocaine 1% 20 ML MDV INJECT ONE (14:12)
[2020-11-19] MEDS ORDERED: Bupivacaine 0.5%/EPINEPHrine 1:200,000 30 ML SDV INJECT ONE (14:14)
[2020-11-19] MEDS ORDERED: Lidocaine 1% 10 ML MDV ONE (14:21)
--- NOTE | 2020-11-19 14:21 | PCM.CONS ---
H&P History of Present Illness - General Date of Service: 11/19/20 Admit Problem/Dx: abscess of left posterior thorax Source of Information: Patient, Provider History Limitations: Reports: No Limitations - History of Present Illness Initial Comments - Free Text/Narative: The patient is a 20 y/o lady who presents with a 3 day history of pain in the left posterior thorax skin. She states that she has had pustules develop the same location in the past, but usually this will drain on it's own. She has n ever had treatment for this in the past. She denies any fever. Left Flank Pain Score (Numeric/FACES): 8 - Related Data Allergies/Adverse Reactions: Allergies Allergy/AdvReac Type Severity Reaction Status Date / Time doxycycline Allergy Severe Rash Verified 11/19/20 10:04 Home Medications: Home Meds Triamcinolone Acetonide [Triderm] 1 dose TOP DAILY PRN 11/19/20 [History] Past Medical History HEENT History: Reports: Impaired Vision Other HEENT History: wears eyeglasses. Cardiovascular History: Reports: Hypertension Other Cardiovascular History: wasa taking med, did not refill. Gastrointestinal History: Reports: Chronic Constipation Genitourinary History: Reports: UTI, Recurrent [employer] History: Reports: Polycystic Ovaries, Psychiatric History: Reports: Anxiety Endocrine/Metabolic History: Reports: Obesity/BMI 30+ Dermatologic History: Reports: Other (See Below) Other Dermatologic History: foliculitis, hydrogenitis. - Infectious Disease History Infectious Disease History: Reports: Chicken Pox Social & Family History - Tobacco Use Tobacco Use Status *Q: Never Tobacco User - Caffeine Use Caffeine Use: Reports: None - Living Situation & Occupation Living situation: Reports: Single Occupation: Employed H&P Review of Systems - Review of Systems: Review Of Systems: See Below General: Reports: No Symptoms HEENT: Reports: No Symptoms Pulmonary: Reports: No Symptoms Cardiovascular: Reports: Palpitations. Denies: Chest Pain Gastrointestinal: Reports: No Symptoms Genitourinary: Reports: No Symptoms Musculoskeletal: Reports: No Symptoms Skin: Reports: Other (pain and cellulitis on left posterior thorax) Psychiatric: Reports: No Symptoms Neurological: Reports: No Symptoms Hematologic/Lymphatic: Reports: No Symptoms Exam - Exam Exam: See Below - Vital Signs Vital Signs: Last Vital Signs Temp 36.1 C 11/19/20 09:59 Pulse 102 H 11/19/20 09:59 Resp 18 11/19/20 09:59 BP 150/72 H 11/19/20 09:59 Pulse Ox 100 11/19/20 09:59 Weight: 136.622 kg - Exam Quality Assessment: No: Supplemental Oxygen General: Alert, Oriented HEENT: Conjunctiva Clear, EOMI Neck: Supple Lungs: Clear to Auscultation, Normal Respiratory Effort Cardiovascular: Regular Rhythm, Tachycardia GI/Abdominal Exam: Soft, Non-Tender, No Distention Skin: Warm, Other (edema in the tissue of the posterior left thorax skin with pain to palpation) Neurological: Cranial Nerves Intact Neuro Extensive - Mental Status: Normal Mood/Affect - Patient Data Lab Results Last 24 hrs: Laboratory Results - last 24 hr 11/19/20 11/19/20 11/19/20 Range/Units 10:31 10:31 10:31 WBC 15.25 H (3.98-10.04) K/mm3 RBC 4.66 (3.98-5.22) M/mm3 Hgb 11.6 (11.2-15.7) gm/dl Hct 36.5 (34.1-44.9) % MCV 78.3 L (79.4-94.8) fl MCH 24.9 L (25.6-32.2) pg MCHC 31.8 L (32.2-35.5) g/dl RDW Std Deviation 40.8 (36.4-46.3) fL Plt Count 316 (182-369) K/mm3 MPV 11.2 (9.4-12.3) fl Neutrophils % (Manual) 71 H (40-60) % Band Neutrophils % 0 (0-10) % Lymphocytes % (Manual) 25 (20-40) % Atypical Lymphs % 1 % Monocytes % (Manual) 3 (2-10) % Eosinophils % (Manual) 0 L (0.7-5.8) % Basophils % (Manual) 0 L (0.1-1.2) Platelet Estimate Adequate Plt Morphology Comment Normal Microcytosis 1+ slight RBC Morph Comment Not Reportable Sodium 140 (136-145) mEq/L Potassium 4.0 (3.5-5.1) mEq/L Chloride 104 (98-107) mEq/L Carbon Dioxide 28 (21-32) mEq/L Anion Gap 12.0 (5-15) BUN 15 (7-18) mg/dL Creatinine 0.9 (0.55-1.02) mg/dL Est Cr Clr Drug Dosing 83.59 mL/min Estimated GFR (MDRD) > 60 (>60) mL/min BUN/Creatinine Ratio 16.7 (14-18) Glucose 93 (70-99) mg/dL Calcium 9.0 (8.5-10.1) mg/dL Total Bilirubin 0.5 (0.2-1.0) mg/dL AST 14 L (15-37) U/L ALT 26 (14-59) U/L Alkaline Phosphatase 65 (46-116) U/L C-Reactive Protein 11.9 H* (<1.0) mg/dL Total Protein 8.7 H (6.4-8.2) g/dl Albumin 3.5 (3.4-5.0) g/dl Globulin 5.2 gm/dL Albumin/Globulin Ratio 0.7 L (1-2) HCG, Qual Negative (NEGATIVE) Urine Color (Yellow) Urine Appearance (Clear) Urine pH (5.0-8.0) Ur Specific [place] (1.005-1.030) Urine Protein (Negative) Urine Glucose (UA) (Negative) Urine Ketones (Negative) Urine Occult Blood (Negative) Urine Nitrite (Negative) Urine Bilirubin (Negative) Urine Urobilinogen (0.2-1.0) Ur Leukocyte Esterase (Negative) 11/19/20 Range/Units 13:15 WBC (3.98-10.04) K/mm3 RBC (3.98-5.22) M/mm3 Hgb (11.2-15.7) gm/dl Hct (34.1-44.9) % MCV (79.4-94.8) fl MCH (25.6-32.2) pg MCHC (32.2-35.5) g/dl RDW Std Deviation (36.4-46.3) fL Plt Count (182-369) K/mm3 MPV (9.4-12.3) fl Neutrophils % (Manual) (40-60) % Band Neutrophils % (0-10) % Lymphocytes % (Manual) (20-40) % Atypical Lymphs % % Monocytes % (Manual) (2-10) % Eosinophils % (Manual) (0.7-5.8) % Basophils % (Manual) (0.1-1.2) Platelet Estimate Plt Morphology Comment Microcytosis RBC Morph Comment Sodium (136-145) mEq/L Potassium (3.5-5.1) mEq/L Chloride (98-107) mEq/L Carbon Dioxide (21-32) mEq/L Anion Gap (5-15) BUN (7-18) mg/dL Creatinine (0.55-1.02) mg/dL Est Cr Clr Drug Dosing mL/min Estimated GFR (MDRD) (>60) mL/min BUN/Creatinine Ratio (14-18) Glucose (70-99) mg/dL Calcium (8.5-10.1) mg/dL Total Bilirubin (0.2-1.0) mg/dL AST (15-37) U/L ALT (14-59) U/L Alkaline Phosphatase (46-116) U/L C-Reactive Protein (<1.0) mg/dL Total Protein (6.4-8.2) g/dl Albumin (3.4-5.0) g/dl Globulin gm/dL Albumin/Globulin Ratio (1-2) HCG, Qual (NEGATIVE) Urine Color Light yellow (Yellow) Urine Appearance Clear (Clear) Urine pH 7.0 (5.0-8.0) Ur Specific [place] 1.015 (1.005-1.030) Urine Protein Negative (Negative) Urine Glucose (UA) Negative (Negative) Urine Ketones Negative (Negative) Urine Occult Blood Negative (Negative) Urine Nitrite Negative (Negative) Urine Bilirubin Negative (Negative) Urine Urobilinogen 0.2 (0.2-1.0) Ur Leukocyte Esterase Negative (Negative) Result Diagrams: 11/19/20 10:31 11/19/20 10:31 Sepsis Event Note - Focused Exam Vital Signs: Vital Signs Temp Pulse Resp BP Pulse Ox 11/19/20 09:59 36.1 C 102 H 18 150/72 H 100 *Q Meaningful Use (ADM) - VTE Risk Assess *Q Each Risk Factor Represents 1 Point: Obesity ( BMI > 25 kg/m2) Total Score 1 Point Risk Factors: 1 Consult PN Assessment/Plan Procedures: Procedures ASSAY OF TROPONIN QUANT (02/20/20) ASSAY THYROID STIM HORMONE (02/20/20) BLOOD TYPING SEROLOGIC ABO (04/04/20) BLOOD TYPING SEROLOGIC RH(D) (04/04/20) CHORIONIC GONADOTROPIN ASSAY (02/20/20) CHORIONIC GONADOTROPIN TEST (04/04/20) COMPLETE CBC W/AUTO DIFF WBC (04/04/20) COMPREHEN METABOLIC PANEL (04/04/20) ELECTROCARDIOGRAM TRACING (02/20/20) EMERGENCY DEPT VISIT (02/20/20) EMERGENCY DEPT VISIT (02/06/20) IIV4 VACC NO PRSV 0.5 ML IM (02/06/20) IMMUNIZATION ADMIN (02/06/20) RBC ANTIBODY SCREEN (04/04/20) ROUTINE VENIPUNCTURE (04/04/20) THER/PROPH/DIAG INJ IV PUSH (02/20/20) TX/PRO/DX INJ NEW DRUG ADDON (02/20/20) URINALYSIS AUTO W/SCOPE (02/06/20) (1) Abscess SNOMED Code(s): 539779472 Code(s): L02.91 - CUTANEOUS ABSCESS, UNSPECIFIED Current Visit: Yes Problem List Initiated/Reviewed/Updated: Yes Plan: 20 y/o lady with abscess on the posterolateral left thorax in the soft tissue. - discussed I&D at bedside vs. with sedation. She is not a candidate for OR with anesthesia at our facility, and this would necessitate transfer. She would like to attempt I&D at bedside. Written consent was obtained - daily dressing change with removal of packing and replacement of packing - follow up in clinic in one week Gaviota Garcia MD General surgery
[2020-11-19] MEDS ORDERED: HYDROmorphone 1 MG/ML Syringe ONE (14:36)
[2020-11-19] MEDS ORDERED: Lidocaine 1% 10 ML MDV INJECT ONE (14:59)
[2020-11-19] MEDS ORDERED: Bupivacaine 0.5%/EPINEPHrine 1:200,000 50 ML MDV NERVRT ONE (14:59)
--- NOTE | 2020-11-19 19:03 | PCM.PRNOTE ---
- Free Text/Narrative Note: procedure Report Date of procedure: November 19, 2020 Preoperative diagnosis: Abscess of left posterolateral thorax soft tissue Postoperative diagnosis: same Procedure: Incision and drainage of Abscess of left posterolateral thorax soft tissue Surgeon: Dr. Gaviota Garcia Anesthesia: Local Patient Account Representative: N/a Estimated blood loss: 10 mL Indication for the procedure: The patient is a 20 y/o lady who presented with a 3 day history of pain and findings of an abscess in the soft tissue on her left posterolateral thorax. We discussed an incision and drainage at bedside. Her written consent was obtained. Description of the procedure: The patient had administration of IV pain medication prior to the start of the procedure. She was prepped and draped in standard fashion. Local anesthetic was then administered with mixed 1% lidocaine with epinephrine and 0.5% bupivacaine with epinephrine. An 18G needle was used to aspirate and locate the area of abscess. A 1.2cm incision was made in the area of protuberance in the area of thin skin. The cavity was drained of approximately 60cc of pus and blood. The cavity was irrigated and packed with 1/2 in iodoform. A dry dressing was applied. Gaviota Garcia MD General surgery
== END 2020-11-19 16:15 | disposition home or self-care (01) ==
LOC: JD.ED 09:32
DX: L02.211 Cutaneous abscess of abdominal wall (principal); I10 Essential (primary) hypertension; E66.9 Obesity, unspecified; Z68.43 Body mass index [BMI] 50.0-59.9, adult; Z88.1 Allergy status to other antibiotic agents
CPT/HCPCS: 10060; 36415; 74177; 80053; 81001; 84703; 85007; 85027; 86140; 96365; 96375; 96376; 99284; J0696; J1170; J2765; J3490; J7030; Q9967